=== PATIENT | male | born 1985 | race Caucasian/White ===

== ENCOUNTER 2018-07-29 13:57 | Emergency (ER) | payer MEDICAID, OTHER ==
[~2018-07-29] VITALS: Ht 172.7 cm; Wt 87.9 kg
[2018-07-29 14:00] VITALS: BP 159/94; PULSE 84; RESP 20; Ht 172.7 cm; Wt 87.9 kg
[2018-07-29] MEDS ORDERED: LIDOCAINE 1% (MDV) 20 ML INJ SC ONE (15:00)
[2018-07-29] MEDS ORDERED: DIPHTH/TET/ACEL PERTUSS (ADULT) 0.5 ML VIAL IM* ONE (15:00)
[2018-07-29] MEDS ORDERED: ONDANSETRON (ODT) 4 MG TAB ODT STA (15:42)
[2018-07-29] MEDS ORDERED: CEPH-443 PO (15:44)
[2018-07-29] MEDS ORDERED: HYDR-4011 PO (15:49)
[2018-07-29] MEDS ORDERED: HYDROCODONE/APAP (5/325) TAB PO ONE (16:00)
--- NOTE | 2018-07-30 07:03 | ERD ---
ER Documentation Chief Complaint Chief Complaint L palm of hand laceration from falling off ladder HPI 32-year-old male presenting with a laceration to his left hand after falling off a ladder earlier today. Patient is right-hand dominant. He does not recall his last tetanus shot. He has no pain or troubles moving his digits. He he has not taken medication since the incident occurred. Denies medical problems. NKDA. Surgical history denies. Social history denies ROS All systems reviewed and are negative except as per history of present illness. Medications Home Meds Active Scripts Hydrocodone/Acetaminophen ([place] 5-325 Tablet) 1 Each Tablet, 1 TAB PO Q6H PRN for PAIN, #7 TAB Prov:SUDHEER MONGE PA-C 07/29/18 Cephalexin* (Keflex*) 500 Mg Capsule, 500 MG PO QID for 7 Days, CAP Prov:SUDHEER MONGE PA-C 07/29/18 Allergies Allergies: Coded Allergies: No Known Allergy (Unverified , 07/29/18) PMhx/Soc Medical and Surgical Hx: pt denies Medical Hx, pt denies Surgical Hx Hx Alcohol Use: No Hx Substance Use: No Hx Tobacco Use: No Smoking Status: Never smoker FmHx Family History: No diabetes, No coronary disease, No other Physical Exam Vitals Vital Signs Date Temp Pulse Resp B/P (MAP) Pulse Ox O2 O2 Flow FiO2 Time Delivery Rate 07/29/18 99.9 84 20 159/94 98 14:00 (115) Physical Exam GENERAL: The patient is well-appearing, well-nourished, in no acute distress CHEST: Clear to auscultation bilaterally. There are no rales, wheezes or rhonchi. HEART: Regular rate and rhythm. No murmurs, clicks, rubs or gallops. EXTREMITIES: Equal pulses bilaterally. Full range of motion. Grossly neurovascularly intact. NEUROLOGIC: Motor strength in all 4 extremities with 5 out of 5 strength. Sensation grossly intact. Normal speech and gait. SKIN: 4 cm L-shaped laceration to the palm of the left hand. No active bleeding. No tendon or ligament rupture. Results 24 hrs Current Medications Medications Dose Sig/Alfredo Start Time Status Last (Trade) Ordered Route PRN Stop Time Admin Dose Reason Admin Diphtheria/ 0.5 ml ONCE ONCE 07/29/18 DC 07/29/18 Tetanus/Acell IM* 15:00 15:55 Pertussis 07/29/18 15:01 (Adacel) Lidocaine 20 ml ONCE ONCE 07/29/18 DC (Xylocaine SC 15:00 1% (Mdv) 20 07/29/18 15:01 ml) 1 tab ONCE ONCE 07/29/18 DC 07/29/18 Acetaminophen PO 16:00 15:53 / 07/29/18 16:01 Hydrocodone Bitart ([place] (5/325)) Ondansetron 4 mg ONCE STAT 07/29/18 DC 07/29/18 HCl (Zofran ODT 15:42 15:52 Odt) 07/29/18 15:43 Procedures/MDM Laceration Repair by me: Anesthesia: 1% lidocaine locally Location: Left palm Tendon/Joint/Nerves: No injury Foreign body: None detected after copious irrigation and exploration Technique: 10 5-0 nylon simple Interrupted Sutures Complexity: No subcutaneous sutures/mucosal repair/edge excision Post Closure Length: 4 cm L-shaped Patient's bleeding was easily controlled in the department and there is no indication of anemia. No evidence of compartment syndrome, neurologic injury, vascular injury, open joint, tendon laceration, or foreign body. Patient is appropriate for outpatient follow up. 48 hour wound check. Scar minimization instructions given. MDM: 32-year-old male presenting with a laceration to the left palm. Patient had sutures placed in the ER. I have low suspicion for tendon or ligament rupture. I have low suspicion for bony injury. I have low suspicion for retained foreign body. Site was adequately cleaned prior to sewing. I will put patient on antibiotics given it was a dirty wound. Patient was discharged with pain medications. Patient is told to return in 2 days for wound check and have sutures removed within 7 days of injury. Patient is told symptoms change or worsen to return immediately to the ER. All questions answered at discharge Departure Diagnosis: Primary Impression: Laceration Condition: Stable Patient Instructions: Laceration, Hand Referrals: COMM[facility]ITY CLINICS YOU HAVE RECEIVED A MEDICAL SCREENING EXAM AND THE RESULTS INDICATE THAT YOU DO NOT HAVE A CONDITION THAT REQUIRES URGENT TREATMENT IN THE EMERGENCY DEPARTMENT. FURTHER EVALUATION AND TREATMENT OF YOUR CONDITION CAN WAIT UNTIL YOU ARE SEEN IN YOUR DOCTORS OFFICE WITHIN THE NEXT 1-2 DAYS. IT IS YOUR RESPONSIBILITY TO MAKE AN APPOINTMENT FOR FOLOW-UP CARE. IF YOU HAVE A PRIMARY DOCTOR --you should call your primary doctor and schedule an appointment IF YOU DO NOT HAVE A PRIMARY DOCTOR YOU CAN CALL OUR PHYSICIAN REFERRAL HOTLINE AT IF YOU CAN NOT AFFORD TO SEE A PHYSICIAN YOU CAN CHOSE FROM THE FOLLOWING ON LICENSE OF [facility] CLINICS [facility] [address] [facility] [address] [facility] [address] [facility] [address] [facility] [address] [facility]. [facility] [address] Additional Instructions: FOLLOW UP WITH YOUR PRIMARY CARE PHYSICIAN TOMORROW.Return to this facility if you are not improving as expected. SUDHEER MONGE PA-C Jul 30, 2018 07:03
== END 2018-07-29 16:35 | disposition home or self-care (01) ==
LOC: FTE 13:57
DX: S61.412A Laceration without foreign body of left hand, initial encounter (principal); W11.XXXA Fall on and from ladder, initial encounter; Y92.9 Unspecified place or not applicable; Z23 Encounter for immunization
CPT/HCPCS: 12002; 90471; 90715; Z7502; Z7610

== ENCOUNTER 2018-07-31 14:34 | Emergency (ER) | payer MEDICAID ==
[~2018-07-31] VITALS: Wt 90.0 kg
[~2018-07-31 14:34] MED LIST: CEPH-443 PO; HYDR-4011 PO
[2018-07-31 14:46] VITALS: BP 154/70; PULSE 78; RESP 17
[2018-07-31] MEDS ORDERED: CEFTRIAXONE 1 GM INJ IM ONE (16:00)
--- NOTE | 2018-07-31 16:41 | ERD ---
ER Documentation Chief Complaint Chief Complaint WOUND CHECK ON LEFT PALM LAC REPAIR 07-29-18 HPI Patient is a 32-year-old male who presents to the ER for concerns of a wound check to his left palm. Patient had sutures placed on 07-29-18. Patient sustained an injury after he fell off a ladder and possibly landed on some bricks. Patient is right-hand dominant. Patient was given his tetanus shot. Patient reports taking Keflex as prescribed. Patient denies any fevers, chills, nausea, vomiting. Patient states that his swelling has increased to his palm. Patient denies any bleeding or drainage from the wounds. Patient is able to bend all digits without difficulty. ROS All systems reviewed and are negative except as per history of present illness. Medications Home Meds Active Scripts Hydrocodone/Acetaminophen ([place] 5-325 Tablet) 1 Each Tablet, 1 TAB PO Q6H PRN for PAIN, #7 TAB Prov:SUDHEER MONGE PA-C 07/29/18 Cephalexin* (Keflex*) 500 Mg Capsule, 500 MG PO QID for 7 Days, CAP Prov:SUDHEER MONGE PA-C 07/29/18 Allergies Allergies: Coded Allergies: No Known Allergy (Unverified , 07/29/18) PMhx/Soc Medical and Surgical Hx: pt denies Medical Hx, pt denies Surgical Hx Hx Alcohol Use: No Hx Substance Use: No Hx Tobacco Use: No FmHx Family History: No diabetes Physical Exam Vitals Vital Signs Date Temp Pulse Resp B/P (MAP) Pulse Ox O2 O2 Flow FiO2 Time Delivery Rate 07/31/18 98.1 78 17 154/70 98 14:46 (98) Physical Exam GENERAL: Well-developed, well-nourished male. Appears in no acute distress. HEAD: Normocephalic, atraumatic. EYES: Pupils are equally reactive bilaterally. EOMs grossly intact. No conjunctival erythema. ENT: Moist mucous membranes. No uvula deviation. No kissing tonsils. NECK: Supple. No meningismus. Normal range of motion of the neck. LUNG: Clear to auscultation bilaterally. No rhonchi, wheezing, rales or coarse breath sounds. HEART: Regular rate and rhythm. No murmurs, rubs or gallops. EXTREMITIES: Equal pulses bilaterally. No peripheral clubbing, cyanosis or edema. No unilateral leg swelling. NEUROLOGIC: Alert and oriented. Moving all four extremities without any difficulty. Normal speech. Steady gait. SKIN: Moderate amount of swelling and slight redness noted to the left palm. No streaking. No warmth. Healing laceration noted to the left palm, no active bleeding. No wound dehiscence. Patient is able to bend and extend all digits without any difficulty. Patient able to bend at the wrist without any difficulty. Normal pulses. Normal cap refill. Results 24 hrs Current Medications Medications Dose Sig/Alfredo Start Time Status Last (Trade) Ordered Route PRN Stop Time Admin Dose Reason Admin Ceftriaxone 1 gm ONCE ONCE 07/31/18 DC 07/31/18 Sodium IM 16:00 16:23 (Rocephin) 07/31/18 16:01 Procedures/MDM ED COURSE: The patient was stable throughout ED course. I kept the patient and/or family informed of laboratory and diagnostic imaging results throughout the ED course. DIAGNOSTIC IMAGING: Read by radiologist. Patient: FRANKO CLARK : 1985 Age: 32 Sex: M MR #: [id number] DOS: 07/31/18 1534 Ordering MD: EVERARDO JENSEN PA-C Location: FTE Room/Bed: PROCEDURE: Left hand x-ray CLINICAL INDICATION: pain TECHNIQUE: AP, lateral and oblique views of the left hand were obtained. COMPARISON: None FINDINGS: There is normal mineralization. No acute fracture or dislocation is seen. There are no significant degenerative changes. There is soft tissue swelling in the region of the second metacarpal head. There are scattered tiny echogenic structures in the soft tissues. RPTAT: AA IMPRESSION: Possible tiny foreign bodies in the soft tissues in the region of the second metacarpal head. .Forrest Reyes MD, Date Time Electronically viewed and signed by .Forrest Reyes MD, MD on 07/31/2018 16:11 .S/ CC: EVERARDO JENSEN PA-C [id number] MEDICATIONS GIVEN: Rocephin IM Patient tolerated medication well with no adverse reactions. Patient reported improvement in pain. MEDICAL DECISION MAKING: This is a 32-year-old male who presents to the ER for wound check to his left palm. Patient sustained a laceration on 07-29-18. Patient reports taking antibiotics as prescribed. Vital signs were reviewed. Patient is afebrile. On exam, patient did have a moderate amount of swelling to his left palm. Case is discussed with supervising physician Dr. Rankin who also evaluated the patient. Patient reported that his mechanism of injury involved possibly landing on his palm from a ladder. There were concerns of crush-like injury thus x-ray imaging was obtained. X-ray imaging is negative for fracture or dislocation. Tiny foreign bodies were noted, see formal report above. These findings were discussed with Dr. Rankin, who agrees that patient was stable for outpatient man agement. Suspicion for infection is low at this time as swelling is likely due to the patient's fall injury mechanism. Patient was given Rocephin here. Patient advised to follow-up with [facility]. Referral information was provided. Low suspicion for compartment syndrome. Wound recheck was advised in 2 days. PRESCRIPTIONS: Continue to take antibiotics as prescribed. Complete full course. DISCHARGE: At this time, the patient is stable for discharge and outpatient management. Post-procedural wound care was discussed with the patient. I have instructed the patient to promptly return to the ER for any new or worsening symptoms including increasing pain, fever, warmth, redness or swelling. The patient and/or family expressed understanding of and agreement with this plan. All questions were answered. Home care instructions were provided. Disclaimer: Inadvertent spelling and grammatical errors are likely due to EHR/dictation software use and do not reflect on the overall quality of patient care. Also, please note that the electronic time recorded on this note does not necessarily reflect the actual time of the patient encounter. Departure Diagnosis: Primary Impression: Foreign body of hand, left Encounter type: initial encounter Qualified Codes: S60.552A - Superficial foreign body of left hand, initial encounter Additional Impressions: Encounter for wound re-check Laceration Condition: Fair Patient Instructions: Wound Care Referrals: [facility] () Usted se burgos hecho un examen mdico de control que le indica que no est en prieto condicin que requiera tratamiento urgente en el Departamento de Emergencia. Un estudio ms profundo y el tratamiento de arriola condicin pueden esperar sin ningn riesgo hasta que usted sea atendida/o en el consultorio de arriola mdico o prieto clnica. Es responsabilidad suya arreglar prieto antonette para el seguimiento del jessica. MANEJO DE CONDICIONES NO URGENTES EN EL FUTURO 1) Si usted tiene un mdico de atencin primaria: Usted debera llamar a arriola mdico de atencin primaria antes de venir al departamento de emergencia. Despus de las horas de consultorio, arriola doctor o arriola asociado/a est disponible por telfono. El mdico o enfermero de roger en el servicio telefnico puede asesorarle por kaitlin medio para atender el problema, o jessica contrario se puede programar prieto antonette. 2) Si usted no tiene un mdico de atencin primaria: Llame al mdico o clnica de referencia que aparece abajo chucho las horas de consultorio para hacer prieto antonette para que le vean. CLINICAS: [facility] [phone] [address] [facility] [phone] [facility] [phone] [address] [facility]. [facility] [phone] [address] [place] [id number] [phone] [facility] [phone] [address] [facility] () Usted se burgos hecho un examen mdico de control que le indica que no est en prieto condicin que requiera tratamiento urgente en el Departamento de Emergencia. Un estudio ms profundo y el tratamiento de arriola condicin pueden esperar sin ningn riesgo hasta que usted sea atendida/o en el consultorio de arriola mdico o prieto clnica. Es responsabilidad suya arreglar prieto antonette para el seguimiento del jessica. MANEJO DE CONDICIONES NO URGENTES EN EL FUTURO 1) Si usted tiene un mdico de atencin primaria: Usted debera llamar a arriola mdico de atencin primaria antes de venir al departamento de emergencia. Despus de las horas de consultorio, arriola doctor o arriola asociado/a est disponible por telfono. El mdico o enfermero de roger en el servicio telefnico puede asesorarle por kaitlin medio para atender el problema, o jessica contrario se puede programar prieto antonette. 2) Si usted no tiene un mdico de atencin primaria: Llame al mdico o condado institucions de referencia que aparece abajo chucho las horas de consultorio para hacer prieto antonette para que le vean. SI USTED NO PUEDE PAGAR PARA MO UN MEDICO puede ir a: [facility] [address] [place] [address] [facility] [address] [place] [address] [facility] [address] [place] [address] [facility] [address] [place], [place] [id number] [facility] Additional Instructions: Regresar en dos barreto para wound recheck. Llame al doctor/ specialista de mano MAANA y long prieto ANTONETTE PARA DENTRO DE 1-2 BARRETO.Dgale a la secretaria que nosotros le instruimos hacer esta antonette.Avise o llame si arriola condicin se empeora antes de la antonette. Regresa aqui si peor o no mejor. EVERARDO JENSEN PA-C Jul 31, 2018 16:41
== END 2018-07-31 17:07 | disposition home or self-care (01) ==
LOC: FTE 14:34
DX: S60.552A Superficial foreign body of left hand, initial encounter (principal); S61.412D Laceration without foreign body of left hand, subsequent encounter; W11.XXXA Fall on and from ladder, initial encounter; Y92.9 Unspecified place or not applicable; Z48.01 Encounter for change or removal of surgical wound dressing
CPT/HCPCS: 73130; 96372; J0696; Z7502

== ENCOUNTER 2018-08-07 11:53 | Emergency (ER) | payer MEDICAID ==
[~2018-08-07] VITALS: Ht 172.7 cm; Wt 89.4 kg
[2018-08-07 12:00] VITALS: BP 146/75; PULSE 75; RESP 16; Ht 172.7 cm; Wt 89.4 kg
--- NOTE | 2018-08-07 15:27 | ERD ---
ER Documentation Chief Complaint Chief Complaint pt is bib self with c/o suture removal left hand HPI 32-year-old male presenting for suture removal of the left palm. Patient had sutures placed 1 week ago. He states that he site is healing appropriately. He is able to move his fingers actively. Denies fever. Denies other medical problems. NKDA. Surgical history denies. Social history denies ROS All systems reviewed and are negative except as per history of present illness. Medications Home Meds Active Scripts Hydrocodone/Acetaminophen ([place] 5-325 Tablet) 1 Each Tablet, 1 TAB PO Q6H PRN for PAIN, #7 TAB Prov:SUDHEER MONGE PA-C 07/29/18 Cephalexin* (Keflex*) 500 Mg Capsule, 500 MG PO QID for 7 Days, CAP Prov:SUDHEER MONGE PA-C 07/29/18 Allergies Allergies: Coded Allergies: No Known Allergy (Unverified , 07/29/18) PMhx/Soc Medical and Surgical Hx: pt denies Medical Hx, pt denies Surgical Hx Hx Alcohol Use: No Hx Substance Use: No Hx Tobacco Use: No Smoking Status: Never smoker FmHx Family History: No diabetes, No coronary disease, No other Physical Exam Vitals Vital Signs Date Temp Pulse Resp B/P (MAP) Pulse Ox O2 O2 Flow FiO2 Time Delivery Rate 08/07/18 97.8 75 16 146/75 98 12:00 (98) Physical Exam GENERAL: The patient is well-appearing, well-nourished, in no acute distress CHEST: Clear to auscultation bilaterally. There are no rales, wheezes or rhonchi. HEART: Regular rate and rhythm. No murmurs, clicks, rubs or gallops. EXTREMITIES: Patient is able to flex and extend all digits of the left hand. No obvious erythema or fluctuance on exam. NEUROLOGIC: Alert and oriented. Cranial nerves II through XII intact. Motor strength in all 4 extremities with 5 out of 5 strength. Sensation grossly intact. SKIN: 5 cm flap laceration noted to the left palm healing appropriately. At the angle of the suture site there is still some friability and healing with weeping of the wound. No dehiscence. No fluctuance or purulence. Procedures/MDM ER course: Sutures removed on the perimeter of the laceration however in the middle of the laceration sutures will remain for 4 more days. I felt that because there was a lot of tension on the site and it did not appear to be completely healed patient would benefit from a few more days of healing with sutures intact. I have low suspicion for tendon or ligament rupture. I have low suspicion for infectious etiology. Patient is discharged with stricter precautions. Departure Diagnosis: Primary Impression: Encounter for removal of sutures Condition: Stable Patient Instructions: Suture Removal, No Complication Referrals: [facility] YOU HAVE RECEIVED A MEDICAL SCREENING EXAM AND THE RESULTS INDICATE THAT YOU DO NOT HAVE A CONDITION THAT REQUIRES URGENT TREATMENT IN THE EMERGENCY DEPARTMENT. FURTHER EVALUATION AND TREATMENT OF YOUR CONDITION CAN WAIT UNTIL YOU ARE SEEN IN YOUR DOCTORS OFFICE WITHIN THE NEXT 1-2 DAYS. IT IS YOUR RESPONSIBILITY TO MAKE AN APPOINTMENT FOR FOLOW-UP CARE. IF YOU HAVE A PRIMARY DOCTOR --you should call your primary doctor and schedule an appointment IF YOU DO NOT HAVE A PRIMARY DOCTOR YOU CAN CALL OUR PHYSICIAN REFERRAL HOTLINE AT IF YOU CAN NOT AFFORD TO SEE A PHYSICIAN YOU CAN CHOSE FROM THE FOLLOWING [facility] CLINICS [facility] [address] [facility] [address] [facility] [address] [facility] [address] [facility]. [facility] [address] [facility]. [facility]. [address] Additional Instructions: FOLLOW UP WITH YOUR PRIMARY CARE PHYSICIAN TOMORROW.Return to this facility if you are not improving as expected. SUDHEER MONGE PA-C Aug 07, 2018 15:27
== END 2018-08-07 14:22 | disposition home or self-care (01) ==
LOC: FTE 11:53
DX: Z48.02 Encounter for removal of sutures (principal)
CPT/HCPCS: 99281

== ENCOUNTER 2018-08-27 10:45 | Emergency (ER) | payer MEDICAID ==
[~2018-08-27] VITALS: Ht 167.6 cm; Wt 90.4 kg
[2018-08-27 10:49] VITALS: BP 155/89; PULSE 92; RESP 20; Ht 167.6 cm; Wt 90.4 kg
[2018-08-27] MEDS ORDERED: ACYC800T5 PO (12:26)
[2018-08-27] MEDS ORDERED: PRED20TA PO (12:26)
[2018-08-27] MEDS ORDERED: HC30CR25 TOP (12:28)
--- NOTE | 2018-08-27 12:31 | ERD ---
ER Documentation Chief Complaint Chief Complaint Complains of facial swelling and left hand infection x 3 days HPI 32-year-old male presents with a one week history of weakness of the right side of the face. He also has pain in his left hand. He sustained a laceration 2 months ago on his left hand. He has no fevers, redness, bleeding or discharge. Denies any recent URIs, distal deficits other than the right side of his face, chest pain, shortness of breath, fevers. ROS All systems reviewed and are negative except as per history of present illness. Medications Home Meds Active Scripts Hydrocortisone* Topical (Hydrocortisone* Topical) 2.5%-28.3 Gm Cream..g., 1 APPLIC TOP BID for 10 Days, #1 TUB Prov:LAURA CRUZ MD 08/27/18 Acyclovir* (Zovirax*) 800 Mg Tablet, 800 MG PO TID for 5 Days, TAB Prov:LAURA CRUZ MD 08/27/18 Prednisone* (Prednisone*) 20 Mg Tab, 40 MG PO DAILY for 5 Days, TAB Prov:LAURA CRUZ MD 08/27/18 Hydrocodone/Acetaminophen (Mccomb 5-325 Tablet) 1 Each Tablet, 1 TAB PO Q6H PRN for PAIN, #7 TAB Prov:SUDHEER MONGE PA-C 07/29/18 Cephalexin* (Keflex*) 500 Mg Capsule, 500 MG PO QID for 7 Days, CAP Prov:SUDHEER MONGE PA-C 07/29/18 Allergies Allergies: Coded Allergies: No Known Allergy (Unverified , 07/29/18) PMhx/Soc Hx Alcohol Use: No Hx Substance Use: No Hx Tobacco Use: No FmHx Family History: No diabetes, No coronary disease, No other Physical Exam Vitals Vital Signs Date Temp Pulse Resp B/P (MAP) Pulse Ox O2 O2 Flow FiO2 Time Delivery Rate 08/27/18 99.1 92 20 155/89 99 10:49 (111) Physical Exam Const: No acute distress Head: Atraumatic Eyes: Normal Conjunctiva and eyes Nicholas and extraocular movements intact. Right scleral irritation. ENT: Normal External Ears, Nose and Mouth. Neck: Full range of motion. No meningismus. Resp: Clear to auscultation bilaterally Cardio: Regular rate and rhythm, no murmurs Abd: Soft, non tender, non distended. Normal bowel sounds Skin: No petechiae or rashes Back: No midline or flank tenderness Ext: No cyanosis, or edema. There is a healing scar on the left palm with irritation and slight hypertrophy but no deficits, weakness. Patient is able to completely extend left hand. Neur: Awake and alert. Peripheral cranial nerve VII palsy. Negative Romberg no pronator drift. Normal gait. Psych: Normal Mood and Affect Procedures/MDM Patient presents with signs and symptoms of Alfaro's palsy without signs of central nervous system deficits, he has no identified additional complications. He has a healing scar in his left palm which shows some post inflammatory hypertrophy and irritation without significant signs of infection or contracture. Patient will be discharged home with recommendations for moisturizer of his left hand, frequent exercise to extend to prevent contracture and scarring. Patient will be treated with acyclovir and prednisone for his Alfaro's palsy. He will be referred to local [facility] for follow- up. Return to ER for new or worsening symptoms. The patient was stable with no new complaints during the ER course. Clinically, there is no current evidence to suggest meningitis, sepsis, acute abdomen, pneumonia, stroke, acute coronary syndrome, pulmonary embolism, aortic dissection or any other emergent condition appearing to require further evaluation or hospitalization. Patient counseled regarding my diagnostic impression and care plan. Prior to discharge all questions answered. Pt agrees with treatment plan and understands strict return precautions. Pt is instructed to follow up with primary care provider within 24- 48 hours. Precautionary instructions provided including instructions to return to the ER if not improving or for any worsening or changing symptoms or concerns. Departure Diagnosis: Primary Impression: Alfaro's palsy Additional Impression: Scar irritation Condition: Stable Patient Instructions: Alfaro's Palsy, Wound Check, Lac F/U (No Infection) [facility] Usted se burgos hecho un examen mdico de control que le indica que no est en prieto condicin que requiera tratamiento urgente en el Departamento de Emergencia. Un estudio ms profundo y el tratamiento de arriola condicin pueden esperar sin ningn riesgo hasta que usted sea atendida/o en el consultorio de arriola mdico o prieto clnica. Es responsabilidad suya arreglar prieto bib para el seguimiento del jessica. MANEJO DE CONDICIONES NO URGENTES EN EL FUTURO 1) Si usted tiene un mdico de atencin primaria: Usted debera llamar a arriola mdico de atencin primaria antes de venir al departamento de emergencia. Despus de las horas de consultorio, arriola doctor o arriola asociado/a est disponible por telfono. El mdico o enfermero de roger en el servicio telefnico puede asesorarle por kaitlin medio para atender el problema, o jessica contrario se puede programar prieto bib. 2) Si usted no tiene un mdico de atencin primaria: Llame al mdico o clnica de referencia que aparece abajo chucho las horas de consultorio para hacer prieto bib para que le vean. CLINICAS: [facility] [phone] [facility] [phone] [facility] [phone] [facility] [phone] [place] [phone] [address] [phone] Additional Instructions: Alfaro's palsy use the last 3 weeks. Recheck for new or worsening symptoms with primary care doctor. Recommend range of motion of hand to prevent scarring. Recheck for redness, fevers, new worsening symptoms. Recommend artificial tears to prevent dryness of the eye. Recommend patching eye at night to prevent foreign bodies. LAURA CRUZ MD Aug 27, 2018 12:31
== END 2018-08-27 13:15 | disposition home or self-care (01) ==
LOC: FTE 10:45
DX: G51.0 Bell's palsy (principal); L90.5 Scar conditions and fibrosis of skin
CPT/HCPCS: 99283